=== PATIENT | female | born 1945 | race Caucasian/White ===

== ENCOUNTER → 2017-10-14 | Outpatient (REF) | payer MEDICARE, OTHER | LOC: M LAB REF 10:15 | DX: N39.0 Urinary tract infection, site not specified (principal) | CPT/HCPCS: 87186 ==

== ENCOUNTER → 2017-11-16 | Outpatient (REF) | payer MEDICARE, OTHER | LOC: M LAB REF 12:05 | DX: N39.0 Urinary tract infection, site not specified (principal) | CPT/HCPCS: 87186 ==

== ENCOUNTER → 2017-11-17 | Outpatient (CLI) | payer MEDICARE, OTHER | LOC: M ADAMS 10:42 | DX: M79.645 Pain in left finger(s) (principal); M25.521 Pain in right elbow; M19.042 Primary osteoarthritis, left hand | CPT/HCPCS: 73080 ==